=== PATIENT | male | born 1945 | race Caucasian/White ===

== ENCOUNTER 2021-09-17 14:25 | Inpatient (IN) | payer MEDICARE ==
[2021-09-17] MEDS ORDERED: Ondansetron PF 4 MG/2 ML Vial ONE (14:48)
[2021-09-17] MEDS ORDERED: Fentanyl 100 MCG/2 ML VIAL ONE ×3 (14:48→16:15)
[2021-09-17 14:55] LABS: #Basophils 0.1 10x3/uL (0.0-0.2); #Eosinphils 0.4 10x3/uL (0.0-0.5); #Monocytes 1.4 10x3/uL (0.0-1.1); %Basophils 0.5 % (0.0-2.0); %Eosinophils 2.4 % (0.0-6.0); %Monocytes 9.4 % (0.0-10.0); %Neutrophils 70.1 % (40.0-75.0); Hemoglobin 15.8 g/dL (13.5-17.5); Mean Corpuscular HGB CONC 34.6 g/dL (32.0-36.0); Mean Corpuscular Hemoglobin 30.3 pg (27.0-33.0); Mean Corpuscular Volume 87.5 fl (81.2-95.1); Mean Platelet Volume 9.4 fl (7.4-10.4); Platelet Count 241 10x3/uL (150-450); RBC Distribution Width 12.6 % (11.5-14.5); Red Blood Cell (RBC) Count 5.22 10x6/uL (4.32-5.72); White Blood Cell (WBC) Count 14.3 10x3/uL (3.5-10.5)
[2021-09-17 15:05] LABS: INR-International Normal Ratio 1.1; PTT 22.6 sec (22.0-33.0); Prothrombin Time 11.7 sec (9.5-12.1)
[2021-09-17 15:09] LABS: ALT (SGPT) 210 U/L (8-55); AST (SGOT) 216 U/L (5-34); Albumin 4.5 g/dL (3.4-4.8); Alkaline Phosphatase 75 U/L (40-110); Anion Gap 17 mmol/L (10-20); BUN (Urea Nitrogen) 23 mg/dL (8.4-25.7); Bilirubin, Total 1.9 mg/dL (0.2-1.2); CK (CPK) 129 U/L (30-200); Calc. Creatinine Clearance 0 mL/min (70-130); Calcium 9.8 mg/dL (7.8-10.44); Carbon Dioxide 25 mmol/L (23-31); Chloride 97 mmol/L (98-107); Globulin 2.6 g/dL (2.4-3.5); Glucose 162 mg/dL (83-110); Potassium 3.5 mmol/L (3.5-5.1); Protein, Total 7.1 g/dL (5.8-8.1); Sodium 135 mmol/L (136-145)
[2021-09-17 15:35] LABS: SARS-CoV-2 NAA Rapid Test Not Detected (NotDetected)
[2021-09-17 15:53] LABS: Lipase Greater than 16000 U/L (8-78)
[2021-09-17] MEDS ORDERED: Morphine 4 MG/ML VIAL ONE (16:17)
[2021-09-17] MEDS ORDERED: Ondansetron PF 4 MG/2 ML Vial IVP PRN (16:37)
[2021-09-17] MEDS ORDERED: Acetaminophen 325 MG TAB PO PRN (16:37)
[2021-09-17] MEDS ORDERED: HYDROcodone/Acetaminophen 5/325 mg Tablet PO PRN (16:37)
[2021-09-17] MEDS ORDERED: Senokot S 8.6-50 MG TAB PO PRN (16:37)
[2021-09-17] MEDS ORDERED: Ondansetron ODT 4 MG TAB PO PRN (16:37)
[2021-09-17] MEDS ORDERED: Bisacodyl 5 MG TAB PO PRN (16:37)
[2021-09-17] MEDS ORDERED: Bisacodyl 10 MG SUPP PR PRN (16:37)
[2021-09-17] MEDS ORDERED: Morphine 4 MG/ML VIAL SLOW IVP PRN (16:42)
[2021-09-17 17:16] LABS: Bilirubin, Direct 1.1 mg/dL (0.1-0.3); CRP (Inflammatory) Less than 0.50 mg/dL (= or < 0.5)
[2021-09-17 18:20] VITALS: BMI 25.2
[2021-09-17] MEDS: Sodium Chloride 0.9% 1,000 ML IV SCH ×2 (18:34→23:30)
[2021-09-17] MEDS: Morphine 4 MG/ML VIAL SLOW IVP PRN (19:55)
[2021-09-17] MEDS ORDERED: Famotidine 20 MG TAB PO SCH (21:00)
[2021-09-17] MEDS ORDERED: Pantoprazole 40 MG VIAL IVP SCH (21:30)
[2021-09-18] MEDS: Morphine 4 MG/ML VIAL SLOW IVP PRN ×5 (00:38→20:15)
[2021-09-18] MEDS: Sodium Chloride 0.9% 1,000 ML IV SCH ×5 (03:36→21:42)
[2021-09-18 04:19] LABS: #Monocytes 1.2 10x3/uL (0.0-1.1); %Basophils 0.1 % (0.0-2.0); %Eosinophils 0.1 % (0.0-6.0); %Lymphocytes 4.2 % (18.0-47.0); %Neutrophils 87.1 % (40.0-75.0); Hemoglobin 15.4 g/dL (13.5-17.5); Mean Corpuscular HGB CONC 34.8 g/dL (32.0-36.0); Mean Corpuscular Hemoglobin 30.2 pg (27.0-33.0); Mean Corpuscular Volume 86.7 fl (81.2-95.1); Mean Platelet Volume 9.4 fl (7.4-10.4); Platelet Count 217 10x3/uL (150-450); White Blood Cell (WBC) Count 14.9 10x3/uL (3.5-10.5)
[2021-09-18 04:39] LABS: ALT (SGPT) 472 U/L (8-55); AST (SGOT) 429 U/L (5-34); Albumin 3.5 g/dL (3.4-4.8); Alkaline Phosphatase 71 U/L (40-110); Anion Gap 13 mmol/L (10-20); BUN (Urea Nitrogen) 19 mg/dL (8.4-25.7); Bilirubin, Total 4.9 mg/dL (0.2-1.2); CRP (Inflammatory) 4.34 mg/dL (= or < 0.5); Calc. Creatinine Clearance 97 mL/min (70-130); Calcium 7.9 mg/dL (7.8-10.44); Carbon Dioxide 21 mmol/L (23-31); Cardiac Risk 4.5 (Less than 4.5); Chloride 105 mmol/L (98-107); Cholesterol 136 mg/dl (< 200 Desired); Globulin 2.1 g/dL (2.4-3.5); Glucose 139 mg/dL (83-110); HDL Cholesterol 30 mg/dL (>60 Neg Risk); LDL Cholesterol, Calculated 87 mg/dL; Potassium 4.4 mmol/L (3.5-5.1); Protein, Total 5.6 g/dL (5.8-8.1); Sodium 135 mmol/L (136-145); Triglycerides 95 mg/dL (Less than 150)
[2021-09-18 05:03] LABS: Lipase 1524 U/L (8-78)
[2021-09-18] MEDS ORDERED: Aspirin 81 mg Enteric Coated Tablet PO SCH (09:00)
[2021-09-18] MEDS ORDERED: Pantoprazole 40 MG VIAL IVP SCH (09:00)
[2021-09-18] MEDS ORDERED: Apixaban 5 MG TAB PO SCH (09:00)
[2021-09-18] MEDS: Lisinopril 20 MG TAB PO SCH (09:14)
[2021-09-18] MEDS: Hydrochlorothiazide 25 MG TAB PO SCH (09:14)
[2021-09-18 09:40] LABS: ALT (SGPT) 463 U/L (8-55); AST (SGOT) 316 U/L (5-34); Albumin 3.6 g/dL (3.4-4.8); Alkaline Phosphatase 75 U/L (40-110); Bilirubin, Direct 3.1 mg/dL (0.1-0.3); Bilirubin, Total 4.8 mg/dL (0.2-1.2); Protein, Total 5.6 g/dL (5.8-8.1)
[2021-09-18 09:52] LABS: Lipase 1210 U/L (8-78)
[2021-09-18 12:27] LABS: Hemoglobin A1c 5.7 % (4.0-6.0)
[2021-09-18 12:51] LABS: Hep C IgG Ab Non-Reactive (NonReactive); Hep C Index 0.07 S/CO (0-0.79)
[2021-09-18 15:02] LABS: ALT (SGPT) 402 U/L (8-55); AST (SGOT) 222 U/L (5-34); Albumin 3.3 g/dL (3.4-4.8); Alkaline Phosphatase 70 U/L (40-110); Bilirubin, Direct 1.9 mg/dL (0.1-0.3); Bilirubin, Total 3.3 mg/dL (0.2-1.2); Lipase 768 U/L (8-78); Protein, Total 5.6 g/dL (5.8-8.1)
[2021-09-18] MEDS ORDERED: Piperacillin/Tazobactam 4.5 GM in Sodium Chloride 0.9% 100 ML IVPB SCH ×2 (16:11→16:13)
[2021-09-18] MEDS ORDERED: Piperacillin/Tazobactam 3.375 GM in Sodium Chloride 0.9% 100 ML IVPB SCH (17:00)
[2021-09-18] MEDS: Pantoprazole 40 MG VIAL IVP SCH (20:14)
[2021-09-18] MEDS: Piperacillin/Tazobactam 3.375 GM in Sodium Chloride 0.9% 100 ML IVPB SCH (21:43)
[2021-09-19] MEDS: Piperacillin/Tazobactam 3.375 GM in Sodium Chloride 0.9% 100 ML IVPB SCH ×3 (04:25→21:51)
[2021-09-19] MEDS: Sodium Chloride 0.9% 1,000 ML IV SCH ×2 (04:25→16:56)
[2021-09-19 05:25] LABS: ALT (SGPT) 265 U/L (8-55); AST (SGOT) 99 U/L (5-34); Alkaline Phosphatase 60 U/L (40-110); Anion Gap 12 mmol/L (10-20); BUN (Urea Nitrogen) 16 mg/dL (8.4-25.7); Bilirubin, Total 2.2 mg/dL (0.2-1.2); Calc. Creatinine Clearance 95 mL/min (70-130); Calcium 7.3 mg/dL (7.8-10.44); Carbon Dioxide 22 mmol/L (23-31); Chloride 105 mmol/L (98-107); Globulin 2.2 g/dL (2.4-3.5); Glucose 134 mg/dL (83-110); Lipase 372 U/L (8-78); Potassium 3.7 mmol/L (3.5-5.1); Protein, Total 5.2 g/dL (5.8-8.1); Sodium 135 mmol/L (136-145)
[2021-09-19 06:40] LABS: #Monocytes 1.4 10x3/uL (0.0-1.1); #Neutrophils 14.3 10x3/uL (1.5-8.4); %Basophils 0.2 % (0.0-2.0); %Eosinophils 0.1 % (0.0-6.0); %Lymphocytes 5.5 % (18.0-47.0); %Monocytes 8.1 % (0.0-10.0); %Neutrophils 85.2 % (40.0-75.0); Hemoglobin 15.2 g/dL (13.5-17.5); Mean Corpuscular HGB CONC 33.8 g/dL (32.0-36.0); Mean Corpuscular Hemoglobin 29.9 pg (27.0-33.0); Mean Corpuscular Volume 88.6 fl (81.2-95.1); Mean Platelet Volume 9.8 fl (7.4-10.4); Platelet Count 177 10x3/uL (150-450); RBC Distribution Width 13.5 % (11.5-14.5); Red Blood Cell (RBC) Count 5.08 10x6/uL (4.32-5.72); White Blood Cell (WBC) Count 16.8 10x3/uL (3.5-10.5)
[2021-09-19] MEDS: Hydrochlorothiazide 25 MG TAB PO SCH (07:05)
[2021-09-19] MEDS: Lisinopril 20 MG TAB PO SCH (07:05)
[2021-09-19] MEDS ORDERED: PROPOFOL 20 ML ONE (09:21)
[2021-09-19] MEDS ORDERED: Rocuronium Bromide 10 MG/ML (10ML VIAL) ONE (09:21)
[2021-09-19] MEDS ORDERED: Dexamethasone 4 mg/ml Vial ONE (09:21)
[2021-09-19] MEDS ORDERED: Ondansetron PF 4 MG/2 ML Vial ONE (09:21)
[2021-09-19] MEDS ORDERED: Fentanyl 100 MCG/2 ML VIAL ONE (09:21)
[2021-09-19] MEDS ORDERED: Lidocaine 1% PF 5 ML VIAL ONE (09:21)
[2021-09-19] MEDS ORDERED: Indomethacin 50 MG SUPP ONE (09:22)
[2021-09-19] MEDS ORDERED: Iopamidol 30 ML ONE (09:22)
[2021-09-19] MEDS ORDERED: SUGAMMADEX SODIUM 200 MG/2 ML VIAL ONE ×2 (10:08)
[2021-09-19] MEDS ORDERED: PHENYLEPHRINE-NS 100 MCG/ML 10 ML SYRINGE ONE (10:09)
[2021-09-19] MEDS ORDERED: traMADol HCl 50 MG TAB PO PRN (12:18)
[2021-09-19] MEDS: Acetaminophen 325 MG TAB PO SCH ×4 (13:45→23:28)
[2021-09-19] MEDS: Morphine 4 MG/ML VIAL SLOW IVP PRN ×2 (15:03→22:16)
[2021-09-19] MEDS: Calcium Carbonate 600 MG + Vit D TAB PO SCH (16:54)
[2021-09-19] MEDS: Pantoprazole 40 MG VIAL IVP SCH (21:52)
[2021-09-20] MEDS: Morphine 4 MG/ML VIAL SLOW IVP PRN ×6 (02:24→22:22)
[2021-09-20] MEDS: Acetaminophen 325 MG TAB PO SCH ×6 (02:25→20:48)
[2021-09-20] MEDS: Sodium Chloride 0.9% 1,000 ML IV SCH ×2 (04:20→12:02)
[2021-09-20] MEDS: Piperacillin/Tazobactam 3.375 GM in Sodium Chloride 0.9% 100 ML IVPB SCH ×3 (04:26→20:49)
[2021-09-20 04:31] LABS: #Monocytes 1.1 10x3/uL (0.0-1.1); #Neutrophils 11.4 10x3/uL (1.5-8.4); %Basophils 0.1 % (0.0-2.0); %Lymphocytes 5.5 % (18.0-47.0); %Monocytes 8.2 % (0.0-10.0); %Neutrophils 85.6 % (40.0-75.0); Hemoglobin 14.2 g/dL (13.5-17.5); Mean Corpuscular HGB CONC 34.5 g/dL (32.0-36.0); Mean Corpuscular Volume 86.9 fl (81.2-95.1); Mean Platelet Volume 9.5 fl (7.4-10.4); Platelet Count 172 10x3/uL (150-450); RBC Distribution Width 13.3 % (11.5-14.5); Red Blood Cell (RBC) Count 4.74 10x6/uL (4.32-5.72); White Blood Cell (WBC) Count 13.3 10x3/uL (3.5-10.5)
[2021-09-20 04:43] LABS: ALT (SGPT) 153 U/L (8-55); AST (SGOT) 42 U/L (5-34); Albumin 2.9 g/dL (3.4-4.8); Alkaline Phosphatase 49 U/L (40-110); Anion Gap 11 mmol/L (10-20); BUN (Urea Nitrogen) 15 mg/dL (8.4-25.7); Bilirubin, Total 1.4 mg/dL (0.2-1.2); Calc. Creatinine Clearance 100 mL/min (70-130); Calcium 7.5 mg/dL (7.8-10.44); Carbon Dioxide 23 mmol/L (23-31); Chloride 105 mmol/L (98-107); Globulin 2.4 g/dL (2.4-3.5); Glucose 121 mg/dL (83-110); Lipase 111 U/L (8-78); Potassium 3.5 mmol/L (3.5-5.1); Protein, Total 5.3 g/dL (5.8-8.1); Sodium 135 mmol/L (136-145)
[2021-09-20] MEDS: Lisinopril 20 MG TAB PO SCH (10:31)
[2021-09-20] MEDS: Hydrochlorothiazide 25 MG TAB PO SCH (10:32)
[2021-09-20] MEDS: Calcium Carbonate 600 MG + Vit D TAB PO SCH ×2 (10:32→18:37)
[2021-09-20] MEDS: Lidocaine 5% Patch TD SCH (10:32)
[2021-09-20] MEDS ORDERED: Polyethylene Glycol 3350 17 GM Packet PO SCH (10:45)
[2021-09-20 11:13] LABS: Hep B Surface AG-Rflx Sendout Negative (Negative); Hepatitis B Core Total Negative (Negative); Hepatitis B Surface AB-Sendout Non Reactive (.)
[2021-09-20] MEDS ORDERED: hydrALAZINE 20 MG/ML VIAL SLOW IVP PRN (14:01)
[2021-09-20] MEDS: Pantoprazole 40 MG VIAL IVP SCH (20:48)
[2021-09-20] MEDS: Transdermal Patch Removal TOP SCH (22:21)
[2021-09-20] MEDS: Senokot S 8.6-50 MG TAB PO SCH (22:21)
[2021-09-21] MEDS: Sodium Chloride 0.9% 1,000 ML IV SCH ×2 (01:43→13:29)
[2021-09-21] MEDS: Morphine 4 MG/ML VIAL SLOW IVP PRN ×2 (01:43→05:48)
[2021-09-21] MEDS: Acetaminophen 325 MG TAB PO SCH ×4 (02:43→13:36)
[2021-09-21 04:39] LABS: ALT (SGPT) 98 U/L (8-55); AST (SGOT) 27 U/L (5-34); Albumin 2.9 g/dL (3.4-4.8); Alkaline Phosphatase 46 U/L (40-110); Anion Gap 11 mmol/L (10-20); BUN (Urea Nitrogen) 15 mg/dL (8.4-25.7); Bilirubin, Total 1.4 mg/dL (0.2-1.2); Calc. Creatinine Clearance 107 mL/min (70-130); Calcium 7.8 mg/dL (7.8-10.44); Carbon Dioxide 24 mmol/L (23-31); Chloride 103 mmol/L (98-107); Globulin 2.5 g/dL (2.4-3.5); Glucose 111 mg/dL (83-110); Magnesium 2.2 mg/dL (1.6-2.6); Potassium 3.3 mmol/L (3.5-5.1); Protein, Total 5.4 g/dL (5.8-8.1); Sodium 135 mmol/L (136-145)
[2021-09-21 04:43] LABS: Phosphorus 1.2 mg/dL (2.3-4.7)
[2021-09-21] MEDS: Piperacillin/Tazobactam 3.375 GM in Sodium Chloride 0.9% 100 ML IVPB SCH ×4 (05:47→22:08)
[2021-09-21] MEDS: Potassium Chloride 20 MEQ in Premix Bag 1 BAG IVPB SCH ×2 (06:26→11:05)
[2021-09-21 07:17] LABS: MDiff Complete? YES
[2021-09-21 07:20] LABS: Band 4 % (5-11); Lymphocytes 14 % (21-51); Monocytes 9 % (0-10); Neutrophil 73 % (42-75)
[2021-09-21 07:24] LABS: Hemoglobin 13.3 g/dL (13.5-17.5); Mean Corpuscular HGB CONC 34.8 g/dL (32.0-36.0); Mean Corpuscular Hemoglobin 30.3 pg (27.0-33.0); Mean Platelet Volume 9.6 fl (7.4-10.4); Platelet Count 178 10x3/uL (150-450); RBC Distribution Width 13.2 % (11.5-14.5); Red Blood Cell (RBC) Count 4.39 10x6/uL (4.32-5.72); White Blood Cell (WBC) Count 10.5 10x3/uL (3.5-10.5)
[2021-09-21 07:25] LABS: Platelet Morphology Comment Appears Adequate; RBC Morphology Normal
[2021-09-21] MEDS ORDERED: EPINEPHrine 1 MG/ML AMP ONE (08:44)
[2021-09-21] MEDS ORDERED: Bupivacaine 0.25% HCL 30 ML VIAL ONE (08:44)
[2021-09-21] MEDS ORDERED: Iopamidol 15 ML ONE (08:45)
[2021-09-21] MEDS ORDERED: Rocuronium Bromide 10 MG/ML (10ML VIAL) ONE (08:48)
[2021-09-21] MEDS ORDERED: Dexamethasone 20 MG/5 ML VIAL ONE (08:48)
[2021-09-21] MEDS ORDERED: PROPOFOL 20 ML ONE (08:48)
[2021-09-21] MEDS ORDERED: Lidocaine 1% PF 5 ML VIAL ONE (08:48)
[2021-09-21] MEDS ORDERED: Midazolam HCl 2 mg/2 ml Vial ONE (08:48)
[2021-09-21] MEDS ORDERED: Glycopyrrolate 0.2 MG/ML 5 ML SYRINGE ONE (08:48)
[2021-09-21] MEDS ORDERED: Ondansetron PF 4 MG/2 ML Vial ONE (08:48)
[2021-09-21] MEDS ORDERED: Fentanyl 250 MCG/5 ML VIAL ONE (08:48)
[2021-09-21] MEDS: Calcium Carbonate 600 MG + Vit D TAB PO SCH ×2 (10:56→18:27)
[2021-09-21] MEDS: Hydrochlorothiazide 25 MG TAB PO SCH (11:01)
[2021-09-21] MEDS: Lisinopril 20 MG TAB PO SCH (11:02)
[2021-09-21] MEDS: Polyethylene Glycol 3350 17 GM Packet PO SCH (11:02)
[2021-09-21] MEDS: Lidocaine 5% Patch TD SCH (11:02)
[2021-09-21] MEDS: Senokot S 8.6-50 MG TAB PO SCH ×2 (11:05→21:59)
[2021-09-21] MEDS ORDERED: Potassium Phosphate 30 MMOL in Sodium Chloride 0.9% 250 ML 250 ML IVPB SCH (11:30)
[2021-09-21] MEDS ORDERED: Lidocaine 2% PF 5 ML VIAL ONE (15:46)
[2021-09-21] MEDS ORDERED: Acetaminophen 325 MG TAB PO PRN (20:26)
[2021-09-21] MEDS ORDERED: HYDROcodone/Acetaminophen 5/325 mg Tablet PO PRN (20:26)
[2021-09-21] MEDS ORDERED: Furosemide 20 MG/2 ML VIAL SLOW IVP SCH (20:30)
[2021-09-21] MEDS ORDERED: Potassium Chloride 20 MEQ TAB PO SCH (21:00)
[2021-09-21] MEDS: Pantoprazole 40 MG VIAL IVP SCH (21:55)
[2021-09-21] MEDS: PHOS-NAK 1 PKT PACK PO SCH (21:55)
[2021-09-21] MEDS: Transdermal Patch Removal TOP SCH (22:09)
[2021-09-22 04:21] LABS: #Monocytes 0.8 10x3/uL (0.0-1.1); %Basophils 0.3 % (0.0-2.0); %Lymphocytes 6.6 % (18.0-47.0); %Monocytes 6.7 % (0.0-10.0); %Neutrophils 85.6 % (40.0-75.0); Hemoglobin 12.2 g/dL (13.5-17.5); Mean Corpuscular HGB CONC 34.6 g/dL (32.0-36.0); Mean Corpuscular Hemoglobin 29.9 pg (27.0-33.0); Mean Corpuscular Volume 86.5 fl (81.2-95.1); Mean Platelet Volume 9.5 fl (7.4-10.4); Platelet Count 195 10x3/uL (150-450); RBC Distribution Width 13.1 % (11.5-14.5); Red Blood Cell (RBC) Count 4.08 10x6/uL (4.32-5.72); White Blood Cell (WBC) Count 11.7 10x3/uL (3.5-10.5)
[2021-09-22 05:16] LABS: ALT (SGPT) 80 U/L (8-55); AST (SGOT) 32 U/L (5-34); Albumin 2.9 g/dL (3.4-4.8); Alkaline Phosphatase 44 U/L (40-110); Anion Gap 10 mmol/L (10-20); BUN (Urea Nitrogen) 20 mg/dL (8.4-25.7); Calc. Creatinine Clearance 100 mL/min (70-130); Carbon Dioxide 26 mmol/L (23-31); Chloride 101 mmol/L (98-107); Globulin 2.5 g/dL (2.4-3.5); Glucose 158 mg/dL (83-110); Magnesium 2.2 mg/dL (1.6-2.6); Potassium 3.8 mmol/L (3.5-5.1); Protein, Total 5.4 g/dL (5.8-8.1); Sodium 133 mmol/L (136-145)
[2021-09-22 05:22] LABS: Phosphorus 1.2 mg/dL (2.3-4.7)
[2021-09-22] MEDS ORDERED: Potassium Phosphate 30 MMOL in Sodium Chloride 0.9% 500 ML IVPB SCH (06:30)
[2021-09-22] MEDS: Piperacillin/Tazobactam 3.375 GM in Sodium Chloride 0.9% 100 ML IVPB SCH ×2 (06:34→14:17)
[2021-09-22] MEDS: Furosemide 20 MG/2 ML VIAL SLOW IVP SCH ×2 (06:34→14:17)
[2021-09-22] MEDS: Lidocaine 5% Patch TD SCH (07:52)
[2021-09-22] MEDS: Polyethylene Glycol 3350 17 GM Packet PO SCH (07:52)
[2021-09-22] MEDS: Lisinopril 20 MG TAB PO SCH (07:55)
[2021-09-22] MEDS: Calcium Carbonate 600 MG + Vit D TAB PO SCH (07:55)
[2021-09-22] MEDS: Senokot S 8.6-50 MG TAB PO SCH (07:55)
[2021-09-22] MEDS: PHOS-NAK 1 PKT PACK PO SCH ×2 (07:56→14:17)
[2021-09-22] MEDS: Hydrochlorothiazide 25 MG TAB PO SCH (07:56)
[2021-09-22] MEDS ORDERED: Milk Of Magnesia 30 ML UDCUP PO SCH (10:15)
[2021-09-22 13:23] VITALS: BP 163/69; TEMP 98.1
== END 2021-09-22 18:06 | disposition home or self-care (01) | DRG 417 ==
LOC: CSHERS 14:25 → SUATTDRO 14:25 → CSHTELE 18:01
PROVIDERS: ADMIT Family Medicine; ATTEND Family Medicine
PROC: 0FT44ZZ Resection of Gallbladder, Percutaneous Endoscopic Approach (ICD-10-PCS; principal; 2021-09-21)
PROC: BF141ZZ Fluoroscopy of Gallbladder, Bile Ducts and Pancreatic Ducts using Low Osmolar Contrast (ICD-10-PCS; 2021-09-21)
DX: K85.10 Biliary acute pancreatitis without necrosis or infection (principal); J96.01 Acute respiratory failure with hypoxia; I50.32 Chronic diastolic (congestive) heart failure; I13.0 Hypertensive heart and chronic kidney disease with heart failure and stage 1 through stage 4 chronic kidney disease, or unspecified chronic kidney disease; K80.32 Calculus of bile duct with acute cholangitis without obstruction; Z20.822 Contact with and (suspected) exposure to COVID-19; N18.2 Chronic kidney disease, stage 2 (mild); I48.0 Paroxysmal atrial fibrillation; I44.7 Left bundle-branch block, unspecified; E78.1 Pure hyperglyceridemia; G47.33 Obstructive sleep apnea (adult) (pediatric); I45.10 Unspecified right bundle-branch block; H90.5 Unspecified sensorineural hearing loss; N40.1 Benign prostatic hyperplasia with lower urinary tract symptoms; Z79.01 Long term (current) use of anticoagulants; Z79.82 Long term (current) use of aspirin; Z79.899 Other long term (current) drug therapy; Z90.89 Acquired absence of other organs; Z90.49 Acquired absence of other specified parts of digestive tract; Z98.52 Vasectomy status; Z87.891 Personal history of nicotine dependence; Z98.41 Cataract extraction status, right eye; Z98.42 Cataract extraction status, left eye
CPT/HCPCS: 36415; 71045; 71275; 74174; 74181; 74330; 76700; 80053; 80061; 80307; 82248; 82550; 83036; 83615; 83690; 83735; 83880; 84100; 84484; 85025; 85610; 85730; 86140; 86704; 86705; 86706; 86707; 86803; 87040; 87340; 87350; 88304; 93005; 93010; 93306; 94760; 96374; 96375; C1713; C9113; J0171; J1100; J1940; J1956; J2001; J2250; J2270; J2405; J2543; J2704; J3010; J3480; J3490; J7030; J7050; Q9967; S0020; U0002

== ENCOUNTER 2022-11-19 15:26 | Emergency (ER) | payer MEDICARE, OTHER ==
[2022-11-19] MEDS ORDERED: Boostrix 0.5 ML (Tdap) VIAL (>/=7 yrs of age) ONE (17:27)
== END 2022-11-19 17:59 | disposition home or self-care (01) ==
LOC: CSHERS 15:26
DX: S76.912A Strain of unspecified muscles, fascia and tendons at thigh level, left thigh, initial encounter (principal); Z23 Encounter for immunization; W18.39XA Other fall on same level, initial encounter
CPT/HCPCS: 90471; 90715; 99283